=== PATIENT | female | born 1975 | race Caucasian/White ===

== ENCOUNTER → 2021-12-09 13:25 | Outpatient (CLI) | payer BC, SELFPAY ==
--- NOTE | ~2021-12-09 | MR_ITS ---
EXAMINATION: MR abdomen wo/w con DATE: 12/09/2021 14:34 INDICATION: Cystic pancreatic lesion TECHNIQUE: Magnetic resonance imaging (MRI) of the abdomen was performed without and with intravenous contrast. Sequences included coronal T2-weighted SS-FSE ARC, coronal T2-weighted FS SS-FSE, coronal T2-weighted 2D FS FIESTA, Water:Coronal LAVA-Flex, sagittal T2-weighted SS-FSE ARC, axial SSFSE ARC, axial 3D DualEcho, axial DWI B=600, axial T1-weighted LAVA, FAT:Coronal LAVA-Flex, and coronal in and opposed phase LAVA-Flex. Thick-slab T2-weighted FRFSE-XL images were obtained for magnetic resonance cholangiopancreatography (MRCP). Maximum intensity projection 3-D reconstructions of the volumetric data were created by the technologist. Postcontrast sequences included a time course of axial T1-weig hted LAVA, FAT:Coronal LAVA-Flex, coronal in and opposed phase LAVA-Flex, and Water:Coronal LAVA-Flex . COMPARISON: None. CONTRAST: Multihance, 13 cc FINDINGS: ABDOMEN MRI: There is a 6 mm cystic lesion in the anterior body of the pancreas without enhancement. No definite communication with the main pancreatic duct is identified. There is a 2.4 x 1.7 cm mildly T1 hypointense and mildly T2 hyperintense lesion in the right hepatic lobe with interrupted peripher al nodular enhancement, consistent with a hemangioma. There is a 2.1 x 1.8 cm cystic lesion with thin septation of the spleen with enhancement of the septation, likely a lymphangioma. The gallbladder, a drenal glands, and kidneys are normal. There are no pathologically enlarged abdominal lymph nodes. No dilated loops of bowel are evident. ABDOMEN MRCP: There is no intrahepatic or extrahepatic biliary dilatation. No biliary stones or stric ture are identified. The pancreatic duct is normal in course and caliber. IMPRESSION: 1. 6 mm cystic lesion of the pancreatic body. The differential diagnosis includes pseudocyst, intradu ctal papillary mucinous neoplasm (IPMN), mucinous cystic neoplasm (MCN), and the less common serous c ystadenoma and neuroendocrine tumor. Correlate for history of pancreatitis. Follow-up pancreas protoc ol MRI or CT in one year is recommended. Reviewed, dictated and finalized at location A. ICE DESK ANALYST IMPRESSION: 1. 6 mm cystic lesion of the pancreatic body. The differential diagnosis includ es pseudocyst, intraductal papillary mucinous neoplasm (IPMN), mucinous cystic neoplasm (MCN), and the less common serous cystadenoma and neuroendocrine tumor . Correlate for history of pancreatitis. Follow-up pancreas protocol MRI or CT in one year is recommended.
[2021-12-09 13:53] LABS: Estimated Glomerular Filt Rate > 60
== END ==
PROVIDERS: PCP Internal Medicine; Visit Provider Physician Assistant Medical
DX: K86.2 Cyst of pancreas (principal)
CPT/HCPCS: 74183; 76376; A9577

== ENCOUNTER 2021-12-16 13:55 | Outpatient (CLI) | payer BC, SELFPAY ==
--- NOTE | ~2021-12-16 | MR_ITS ---
EXAMINATION: MR pelvis wo/w con INDICATION: Pancreatic cyst, chronic diarrhea TECHNIQUE: Coronal SSFSE ARC, Coronal, Axial, and Sagittal T2 FRFSE small [id number], Coronal 2D F IESTA FatSat, Axial SSFSE BH ARC, Axial 3D DualEcho BH, Axial STIR, Axial DWI b=500, pre and dynamic postcontrast Axial LAVA ARC COMPARISON: None available CONTRAST: Multihance, 12 cc FINDINGS: There are no dilated loops of bowel. No pathologically enlarged pelvic lymph nodes are iden tified. The osseous structures are unremarkable. There are at least three intramural masses in the po sterior body of the uterus. The largest measures 2.9 x 1.8 cm. The masses are predominantly T1 isoint ense and T2 hypointense with foci of increased T1 signal intensity and mildly increased T2 signal int ensity. There is some internal enhancement of these masses after contrast administration. No addition al abnormal enhancement of the pelvis is identified.. IMPRESSION: 1. Three intramural masses at the posterior uterine body which may reflect fibroids versus endometrio sis versus adenomyomas. Reviewed, dictated and finalized at location F. GER [employer] IMPRESSION: 1. Three intramural masses at the posterior uterine body which may reflect fibr oids versus endometriosis versus adenomyomas.
== END 2021-12-16 13:56 ==
LOC: MICIMG 13:57
PROVIDERS: PCP Internal Medicine; Visit Provider Physician Assistant Medical
DX: K86.2 Cyst of pancreas (principal); R19.2 Visible peristalsis
CPT/HCPCS: 72197; A9577

== ENCOUNTER → 2023-12-07 12:53 | Outpatient (CLI) | payer BC, SELFPAY ==
--- NOTE | ~2023-12-07 | MR_ITS ---
EXAMINATION: MR MRCP wo/w con/w 3D wo ind DATE: 12/07/2023 13:51 INDICATION: Cystoscopy pancreas. TECHNIQUE: Magnetic resonance imaging (MRI) of the abdomen was performed without intravenous contrast . Sequences included coronal T2-weighted FS FSE, coronal T2-weighted FSE, axial T1-weighted LAVA, cor onal FS FIESTA, axial dual-echo T1-weighted SPGR, coronal lava-FLEX, sagittal T2-weighted FSE, axial T2-weighted FSE, and axial DWI. Thick-slab T2-weighted FSE images were obtained for magnetic resonanc e cholangiopancreatography (MRCP). Maximum intensity projection 3-D reconstructions of the volumetric data were created by the technologist. Postcontrast sequences included coronal LAVA-flex and time co urse of axial T1-weighted LAVA. COMPARISON: Abdomen MRI 12/09/2021 FINDINGS: ABDOMEN MRI: There is a 2.2 cm hemangioma in the liver. The gallbladder is normal. There are cysts in the spleen measuring up to 6 mm. There are approximately 4 cysts in the pancreas measuring up to 7 m m. The adrenal glands and kidneys are normal. There are no dilated loops of bowel. There are no patho logically enlarged lymph nodes. There is no free intraperitoneal fluid. There is severe degenerative disc disease at L3-L4. ABDOMEN MRCP: The common duct is normal and measures 5 mm. No choledocholithiasis. IMPRESSION: 1. Small pancreatic cysts with interval worsening. The differential diagnosis includes pseudocyst, in traductal papillary mucinous neoplasm (IPMN), mucinous cystic neoplasm (MCN), serous cystadenoma, and neuroendocrine tumor. Abdomen MRI without and with contrast is recommended in one year. Reviewed, dictated and finalized at location A. MAKER IMPRESSION: 1. Small pancreatic cysts with interval worsening. The differential diagnosis i ncludes pseudocyst, intraductal papillary mucinous neoplasm (IPMN), mucinous cy stic neoplasm (MCN), serous cystadenoma, and neuroendocrine tumor. Abdomen MRI without and with contrast is recommended in one year.
== END ==
DX: K86.2 Cyst of pancreas (principal)
CPT/HCPCS: 74183; 76376; A9577